=== PATIENT | female | born 1995 | race Two or more races ===

== ENCOUNTER 2020-11-18 13:59 | Emergency (ER) | payer MEDICAID ==
[~2020-11-18] VITALS: Ht 157.5 cm; Wt 52.0 kg
[2020-11-18 16:32] VITALS: BP 100/71
== END 2020-11-18 16:33 | disposition home or self-care (01) ==
LOC: ER 14:20
DX: S60.222A Contusion of left hand, initial encounter (principal); W18.39XA Other fall on same level, initial encounter; Y93.89 Activity, other specified; Y92.89 Other specified places as the place of occurrence of the external cause; Y99.8 Other external cause status
CPT/HCPCS: 73110; 73130; 81025; 99284; Z7610